=== PATIENT | female | born 1970 | race Caucasian/White ===

== ENCOUNTER 2017-01-30 05:45 | Day surgery (SDC) | payer OTHER ==
[~2017-01-30] VITALS: Ht 167.6 cm; Wt 100.0 kg
[2017-01-30] VITALS (11 sets, daily range): BP systolic 114–133; BP diastolic 64–81; PULSE 54–97; RESP 12–20; TEMP 97.2–97.7; O2SAT 97–100; Ht 167.6 cm; Wt 100.0 kg
[~2017-01-30 05:45] MED LIST: CELE200C PO; CETI10CA19 PO; HYDR25TA PO; MULT-933 PO; OMEP20CA10 PO; VITA1TAB21 PO
[2017-01-30] MEDS ORDERED: [UNRECOGNIZED DRUG - CODE] PO CHEW (06:34)
[2017-01-30] MEDS ORDERED: CHOL400T38 PO (06:34)
--- NOTE | 2017-01-30 06:57 | ANESPREOP ---
Anesthesia Record Date and Time DATE: 01/30/17 TIME: 06:55 Pre-Op Diagnosis painful left foot Proposed Surgical Procedure LT. ANDREA AND RHIANNON OSTEOTOMY OF CALCANEOUS NPO since: mn Allergies: Coded Allergies: MARCELINO Inhibitors (Verified Allergy, Unknown, 01/29/17) nut - unspecified (Verified Allergy, Unknown, 01/29/17) Ht/Wt/BMI Height: ' " Weight: kg BMI: kg/m2 Medications Inpatient Medications Current Medications Medications (Trade) Dose Ordered Sig/Christopher Start Time Stop Time Status Last Admin Dose Admin Lactated Ringer's (Lactated Ringers) 1,000 ml @ 50 mls/hr Q20H 01/30/17 07:00 Calcium Phosphate Trib/Vit D3 (Calcium Gummies) 1 Each Tab.chew, 2 PO CHEW, ( Reported) Last Taken: on 01/29/17 Celecoxib (Celebrex) 200 Mg Capsule, 1 CAP PO DAILY , (Reported) Last Taken: on 01/15/17 Cetirizine HCl (Zyrtec) 10 Mg Capsule, 1 CAP PO DAILY PRN for ALLERY SYMPTOMS, (Reported) Last Taken: on 01/29/17 Cholecalciferol (Vitamin D3) (Vitamin D3) 400 Unit Tab.chew, 3 PO, (Reported) Last Taken: on 01/29/17 Hydrochlorothiazide (Hydrochlorothiazide) 25 Mg Tablet, 1 TAB PO WB, (Reported) Last Taken: on 01/29/17 Multivitamin (Multi-Day Vitamins) 1 Each Tablet, 1 TAB PO DAILY, (Reported) Last Taken: on 01/29/17 Omeprazole (Omeprazole) 20 Mg Capsule.dr, 20 MG PO ACB, (Reported) Take 1 capsule, by mouth, one time a day (before breakfast). Last Taken: on 01/15/17 Vitamin B Complex (Vitamin B Complex) 1 Each Tablet , 1 TAB PO DAILY, (Reported) Last Taken: on 01/29/17 Currently on Beta Tavo: No Medical/Surgical History Anesthesia PMH: Reports: Anesthesia Reactions (no airway issues, N&V,SLOW TO WAKE), Arthritis (knees), Denies: Cancer, Clotting Problems, Glaucoma, Malignant Hyperthermia Smoking Status: Never smoker Substance Use Type: does not use Alcohol Intake: none HX of Last Menstrual Period: hyst. Past Surgical History Orthopedic Surgeries: Abdominal Surgeries: Yes - GASTRIC BIPASS Genitourinary Surgeries: Cardiac Surgeries: Endocrine Surgeries: Reproductive Surgeries: Yes - HYST. Neurological Surgeries: Ear Surgeries: Nose Surgeries: Throat Surgeries: Other Surgeries: Yes - BUNION-PRIETO. rt padmini ngo Anesthesia Adverse Reactions: FOUND none Family Hx of Anesthesia Advers: none Pertinent Findings EKG Rhythm: Sinus Rhythm Physical Exam Respiratory: Bilat breath sounds equal, Lungs clear Cardiovascular: FOUND Regular rate, rhythm, FOUND No murmur ASA: 2 Plan Anesthesia Plan: TIVA Discussion Discussed risks/options/alternatives of anesthesia and questions answered. Patient consents. Nursing pain assessment noted. Attestation Statement Prior to the delivery of any anesthetic medication, I examined the patient, developed the plan, obtained the patient's consent and discussed the risk and benefits of the procedure with the patient/guardian. SUYAPA CABELLO OPTOMECHANICAL ENGINEER January 30, 2017 06:57
[2017-01-30] MEDS ORDERED: LIDOCAINE 1% (10mg/ml) 2ml SDV INJ ONE (07:00)
[2017-01-30] MEDS ORDERED: DEXAMETHASONE 4mg/ml - 1ml INJECTION ONE (07:06)
[2017-01-30] MEDS ORDERED: LIDOCAINE 1% (10mg/ml) 30ml SDV ONE (07:06)
[2017-01-30] MEDS ORDERED: BUPIVACAINE 0.5% (5mg/ml) 30ml INJ SDV ONE (07:06)
[2017-01-30] MEDS: LR 1,000 ML IV SCH ×2 (07:17→09:03)
[2017-01-30] MEDS ORDERED: PROPOFOL 500mg 50 ML IV ONE (07:18)
[2017-01-30] MEDS ORDERED: LIDOCAINE 2% (20mg/ml) 5ml PF SDV ONE (07:18)
[2017-01-30] MEDS ORDERED: SCOPOLAMINE 1.5 MG PATCH TD ONE (07:30)
[2017-01-30] MEDS ORDERED: FENTANYL 100mcg/2ml INJECTION ONE (07:38)
[2017-01-30] MEDS ORDERED: KETAMINE 500mg/10ml INJECTION ONE (07:39)
[2017-01-30] MEDS ORDERED: ROCURONIUM 50mg/5ml INJECTION IV ONE (07:40)
[2017-01-30] MEDS ORDERED: MIDAZOLAM 2mg/2ml INJECTION ONE (07:40)
[2017-01-30] MEDS ORDERED: ONDANSETRON 4mg/2ml INJECTION IV PRN (07:45)
[2017-01-30] MEDS ORDERED: METOCLOPRAMIDE 10mg/2ml INJECTION IV PRN (07:45)
[2017-01-30] MEDS ORDERED: HYDROMORPHONE 2mg/ml INJECTION IV PRN (07:45)
[2017-01-30] MEDS ORDERED: CEFAZOLIN 1 GRAM INJECTION IV ONE (08:00)
--- NOTE | 2017-01-30 10:23 | ANESPO ---
Post-Op Note Date 01/30/17 Time: 10:22 Status Pt Participated in Evaluation: Pt participated in person Vital Signs Date Time Temp Pulse Resp B/P Pulse Ox O2 Delivery O2 Flow Rate FiO2 01/30/17 09:30 60 18 119/73 100 Room Air 01/30/17 09:30 97.2 Respiratory Function: Airway patent, Regular respirations Cardiovascular Function: Regular pulse Mental Status: Alert/oriented Pain Level Intensity: 0 Hydration: Taking po fluids Complications during Recovery None apparent Follow-Up Instructions Instructions Per Surgeon SUYAPA WALL CRNA January 30, 2017 10:23
--- NOTE | 2017-01-30 11:56 | DI ---
Indication: ITS.REASON: LEFT CALCANEOUS OSTEOTOMY RF OS CALCIS LEFT 2 VIEWS: Comparison: None Technique: Two C-arm films Findings: Patient showed a sizable calcaneal heel spur. Patient shows postoperative changes of a stabilized Alcaine cranial osteotomy. Two metallic jeremy are in place. Impression: C-arm films obtained during osteotomy of the calcaneus. .
--- NOTE | 2017-01-31 10:48 | OPNOTEF ---
DATE OF OPERATION: 01/30/2017 PREOPERATIVE DIAGNOSIS: Painful left heel spur. POSTOPERATIVE DIAGNOSIS: Painful left heel spur. OPERATION: Calcaneal osteotomy, left foot. ANESTHESIA: General. SURGEON: Pino Ruff DPM HEMOSTASIS: Pneumatic ankle tourniquet. ESTIMATED BLOOD LOSS: Minimal. MATERIALS: An EasyClip size 20 x 20 x 20, x 2. PATHOLOGY: None. COMPLICATIONS None. DESCRIPTION OF OPERATIVE PROCEDURE The patient was brought to the operating room and placed on the operating room table on her lateral side so that the left lateral ankle was facing superiorly. Following general anesthesia local anesthesia was obtained utilizing 20 cc of a 1:1 mixture of 1% lidocaine plain and 0.5% Marcaine plain. The foot was then scrubbed, prepped, and draped in the usual aseptic manner. An Esmarch bandage was then utilized to exsanguinate the patient's left foot and the tourniquet was inflated. Attention was then directed to the lateral aspect of the left foot. An 8-cm hockey-stick incision was made around the calcaneus just superior to the nerve. The incision was deepened using sharp and blunt dissection all the way down to bone. Care was taken to retract all neurovascular structures. At this time the body of the calcaneus was free of soft tissue attachments. Using a C-arm to determine the osteotomy cut, we took approximately an 8-mm pie-wedge section of the calcaneus, leaving a plantar proximal hinge intact. The foot was dorsiflexed and the osteotomy was closed. A 20 x 20 x 20 EasyClip x 2 was used to fixate the osteotomy under standardized technique. The osteotomy was in good position afterwards, confirmed by C-arm. The wound was then flushed with copious amounts of sterile saline and closed in layers using 0-Vicryl, 4-0 Vicryl and 3-0 Prolene. The tourniquet was then deflated and immediate hyperemia returned to all digits. The foot was then dressed with 4 x 4, Michelle and a short-leg cast. The patient tolerated the procedure well and was transferred to the recovery room with all vital signs stable and vascular status intact to the feet. The patient will be discharged per Anesthesia. MERRY
== END 2017-01-30 10:30 | disposition home or self-care (01) ==
LOC: NSC 05:45
PROVIDERS: ATTEND Podiatrist
DX: M77.32 Calcaneal spur, left foot (principal)
CPT/HCPCS: 28300; 73650; 76000; C1713; J0690; J1100; J1170; J2250; J3010; J7120